=== PATIENT | male | born 1965 | race Caucasian/White ===

== ENCOUNTER → 2020-04-24 | Day surgery (SDC) | payer OTHER ==
[~2020-04-24] MED LIST: CYMBALTA20 MG PO; GABAPENTIN800 MG PO; TRAZODONE 100M100 MG PO; VENTOLIN HFA IN18 GM INH; VOLTAREN **OUT50 MG PO; VOLTAREN100 GM TOP
[2020-04-24 08:31] LABS: HGB 17.9 g/dl (13.2-18.0); MCH 32.6 pg (25.0-31.0); MCHC 34.4 g/dL (32.0-36.0); MCV 94.7 fL (78.0-100.0); RBC 5.49 M/uL (4.70-6.00); RDW 12.4 % (11.5-14.0); WBC 10.7 K/uL (4.0-10.5)
[2020-04-24 08:55] LABS: ALBUMIN 4.1 g/dL (3.4-5.0); BILIRUBIN - TOTAL 0.8 mg/dL (0.2-1.0); BUN/CREAT RATIO (CALC) 14.1 RATIO; CREATININE 0.64 mg/dL (0.67-1.17); GLOBULIN (CALCULATION) 3.3 g/dL; POTASSIUM 3.9 mmol/L (3.5-5.1); TOTAL PROTEIN 7.4 g/dL (6.4-8.2)
== END | disposition home or self-care (01) ==
LOC: FAS 12-29 08:30
PROVIDERS: Surgery
DX: K63.5 Polyp of colon (principal); F17.210 Nicotine dependence, cigarettes, uncomplicated; Z88.1 Allergy status to other antibiotic agents; Z79.899 Other long term (current) drug therapy
CPT/HCPCS: 36415; 80053; J2250; J2704; J7120